=== PATIENT | female | born 1940 | race African-American/Black ===

== ENCOUNTER → 2018-04-24 | Outpatient (CLI) | payer OTHER ==
[~2018-04-24] MED LIST: FUROSEMIDE INJ 10 MG/ML 4 ML VIAL ONE; REGADENOSON 0.4 MG/5 ML SYR IV ONE
--- NOTE | 2018-04-24 20:26 | Diagnostic Imaging Report ---
Renal Scan with Lasix Washout Clinical information: 77 F with ureteral stricture. Technique: Following intravenous administration of 10 mCi of Tc-99m MAG3, dynamic images of the kidneys in the posterior projection were obtained through 40 minutes. Lasix 40 mg was administered intravenously at 10 minutes post injection of the tracer. Report: Left kidney: Perfusion of the left kidney is prompt. The kidney has a normal reniform shape. Extraction of tracer from the blood pool is normal for age. Clearance of tracer from the renal parenchyma is prompt. The pelvicalyceal system is not dilated although a large dilated calyx is present in the upper pole. Physiologic pooling of tracer within the pelvicalyceal system is seen. Drainage of tracer from the pelvicalyceal system is prompt and adequate prior to administration of Lasix. No significant stasis of tracer is seen within the left ureter. Right kidney: Perfusion to the right kidney is prompt. The right kidney has a slightly narrowed reniform shape. The right kidney is smaller than the left kidney. Extraction of tracer by the renal parenchyma is normal for age. Clearance of tracer from the renal parenchyma is prompt. The pelvicalyceal system is not dilated although dilated calyces are present in the upper pole and mid aspect of the kidney. Physiologic pooling of tracer within the pelvicalyceal system is seen. Drainage of tracer from the pelvicalyceal system is prompt and adequate prior to administration of Lasix. No significant stasis of tracer is seen within the right ureter. Differential renal function: The left kidney contributes 54% of total renal function and the right kidney contributes 46%% (normal 43-57%). Impression: 1. The function of the left kidney is generally normal for age. No hydronephrosis is present although a dilated calyx is noted in the upper pole. No physiologically significant obstruction of the renal collecting system is present. 2. The function of the right kidney is generally normal. The differential function of 46% reflects the smaller size of the right kidney compared to the left kidney. No hydronephrosis is present although dilated calyces are noted in the upper pole and mid aspect of the kidney. No physiologically significant obstruction of the renal collecting system is present. 3. The differential renal function is within normal limits. Signed by: Dr. Nyla Oreilly M.D. on 04/24/2018 8:23 PM
== END ==
LOC: NM 14:00
PROVIDERS: ATTEND Urology
DX: N35.9 Urethral stricture, unspecified (principal); N28.1 Cyst of kidney, acquired
CPT/HCPCS: 78708; A9562; J1940

== ENCOUNTER → 2019-04-09 | Outpatient (CLI) | payer MEDICARE ==
--- NOTE | 2019-04-09 13:19 | Diagnostic Imaging Report ---
EXAM: Renal Ultrasound INDICATION: Renal cyst. COMPARISON: None TECHNIQUE: Transverse and longitudinal images of the kidneys and bladder were obtained. FINDINGS: Right Kidney: Length: Measures 12.0 x 4.4 x 3.9 cm Appearance: Normal echogenicity. Collecting system: No hydronephrosis Stones: None Cyst/Mass: No evidence of solid mass. There is an anechoic simple appearing cyst in the right mid pole, measuring up to 2.2 cm. Left Kidney: Length: Measures 11.1 x 4.8 x 3.6 cm Appearance: Normal echogenicity. Collecting system: No hydronephrosis Stones: There is a 4 mm left mid pole renal stone. Cyst/Mass: None Bladder: Unremarkable in appearance. Bilateral ureteral jets are present. The prevoid volume is 64 cc. IMPRESSION: Simple appearing 2.2 cm right mid pole renal cyst. A 4 mm nonobstructive left mid pole renal stone. Signed by: Dr. Gasper Mckeon MD on 04/09/2019 1:15 PM
== END ==
LOC: US 10:59
PROVIDERS: ATTEND Urology
DX: N28.1 Cyst of kidney, acquired (principal); N13.30 Unspecified hydronephrosis
CPT/HCPCS: 76770

== ENCOUNTER → 2019-08-02 | Outpatient (CLI) | payer OTHER, MEDICARE ==
--- NOTE | 2019-08-02 10:47 | Diagnostic Imaging Report ---
CT of the abdomen and pelvis History: Kidney calculus Comparison: No CT comparisons available for review, comparison is made to renal ultrasound dated 04/09/2019. Technique: Multidetector CT scanning of the abdomen and pelvis was performed from the level of the lung bases to the inferior pubic ramus without contrast. DOSE REDUCTION: The examination was performed according to departmental dose-optimization program which includes automated exposure control, adjustment of the mA and/or kV according to patient size and/or use of iterative reconstruction technique. Discussion: The lung bases are clear. Lack of IV contrast evaluation of solid and hollow organs. No focal hepatic lesions are identified. The gallbladder is present nondistended. No radiopaque gallstones are identified. There is no intrahepatic or extrahepatic biliary dilatation. Spleen is within normal limits. The bilateral adrenal glands are normal. The pancreas is within normal limits. Kidneys are normal in size. The right kidney contains a 2.4 cm cyst arising from the midpole. In the left kidney is nonobstructing 3 mm calculus. There is no hydroureteronephrosis bilaterally. The stomach, small, and large bowel are nondistended. There is no evidence of obstruction. The appendix is normal. There is no bowel wall thickening. The uterus is surgically absent. The urinary bladder is within normal limits. The abdominal aorta is of normal course and caliber. No enlarged abdominal or retroperitoneal lymph nodes are identified. There are no acute osseous abnormalities. 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 In the subcutaneous tissues of the left upper quadrant anterior abdominal wall there is a 3.7 x 2.0 cm soft tissue mass which is not completely characterized on this examination. IMPRESSION: 1. 3 mm nonobstructing left renal calculus. 2. Nonspecific 3.7 x 2.0 cm soft tissue mass in the subcutaneous tissues of the left upper quadrant anterior abdominal wall. Further evaluation can be performed with ultrasound. 3. Right renal cyst 4. Status post hysterectomy. Signed by: Bal Drummond MD on 08/02/2019 10:44 AM
== END ==
LOC: CT 09:38
PROVIDERS: ATTEND Urology
DX: N20.0 Calculus of kidney (principal)
CPT/HCPCS: 74176

== ENCOUNTER → 2019-08-26 | Outpatient (CLI) | payer OTHER, MEDICARE ==
--- NOTE | 2019-08-26 17:38 | Diagnostic Imaging Report ---
Parathyroid Scan with SPECT Reason for exam: Primary hyperparathyroidism Radiopharmaceutical: Tc-99m sestamibi 26 mCi After intravenous administration of the radiopharmaceutical, immediate and 2-hour planar images of the neck and upper chest were obtained. Tomographic images of the neck and upper chest were obtained following the initial planar images. On the initial planar and the tomographic images, a focus of increased tracer is seen immediately superior to the upper pole of the left thyroid lobe. On the tomographic images, this focus is localized immediately posterior to the plane of the thyroid. On the delayed planar images, the thyroid washes out adequately and this focus persists. No other focal abnormalities are identified. Impression: Single enlarged hypermetabolic parathyroid gland is identified immediately superior to the upper pole of the left thyroid lobe. Signed by: Dr. Nyla Oreilly M.D. on 08/26/2019 5:35 PM
== END ==
LOC: NM 10:32
PROVIDERS: ATTEND Urology
DX: E21.5 Disorder of parathyroid gland, unspecified (principal)
CPT/HCPCS: 78071; A9500

== ENCOUNTER → 2020-05-08 | Outpatient (CLI) | payer OTHER, MEDICARE ==
[~2020-05-08] MED LIST changes: +DIFLUCAN50 MG PO; +MACRODANTIN100 MG PO; +MULTIVITAMINS1 EAC7 PO; -REGADENOSON 0.4 MG/5 ML SYR IV ONE
--- NOTE | 2020-05-08 15:07 | Diagnostic Imaging Report ---
Exam: KUB - 2 views Indication: Renal calculus Comparison: CT abdomen and pelvis of 08/02/2019 Findings: No radiographically apparent renal calculi. Nonobstructive bowel gas pattern. No evidence of free intraperitoneal air.. No acute bony abnormality. Impression: No radiographically apparent renal calculi. Signed by: Nate Avery MD on 05/08/2020 3:04 PM
--- NOTE | 2020-05-10 16:07 | Diagnostic Imaging Report ---
Renal Scan with Lasix Washout Clinical information: Renal calculi Technique: Following intravenous administration of 10 mCi of Tc-99m MAG3, dynamic images of the kidneys in the posterior projection were obtained through 40 minutes. Lasix 40 mg was administered intravenously at 10 minutes post injection of the tracer. Report: Left kidney: Perfusion of the left kidney is prompt. The kidney has a normal reniform shape. Extraction of tracer from the blood pool is mildly decreased. Clearance of tracer from the renal parenchyma begins promptly but is not complete by the end of the study. The pelvicalyceal system is not dilated although prominent calices are seen in the upper pole. Increased pooling of tracer is seen within the prominent calices. Drainage of tracer from the pelvicalyceal system is adequate prior to administration of Lasix. No significant stasis of tracer is seen within the left ureter. Right kidney: Perfusion of the right kidney is prompt. The kidney has a normal reniform shape. Extraction of tracer from the blood pool is mildly decreased. The right kidney is slightly smaller than the left kidney. Clearance of tracer from the renal parenchyma begins promptly but is not complete by the end of the study. The renal pelvis is not dilated although prominent calices are seen in the upper and lower poles. Increased pooling of tracer is seen within the prominent calices. Drainage of tracer from the pelvicalyceal system is adequate prior to administration of Lasix. No significant stasis of tracer is seen within the right ureter. Differential renal function: The left kidney contributes 54% of total renal function and the right kidney contributes 46% (normal 43-57%). Impression: 1. Mild medical renal disease is suspected in the left kidney. Prominent calices are seen in the upper pole but no hydronephrosis is present. No physiologically significant obstruction of the renal collecting system is present. 2. Mild medical renal disease is suspected in the right kidney. Prominent calices are seen in the upper pole but no hydronephrosis is present. No physiologically significant obstruction of the renal collecting system is present. 3. The differential renal function is preserved although the right kidney is slightly smaller than the left kidney. Signed by: Dr. Nyla Oreilly M.D. on 05/10/2020 4:04 PM
== END ==
LOC: NM 12:21
PROVIDERS: ATTEND Urology
DX: N20.0 Calculus of kidney (principal)
CPT/HCPCS: 74018; 78708; A9562; J1940

== ENCOUNTER → 2021-03-09 | Outpatient (CLI) | payer MEDICARE ==
[~2021-03-09] MED LIST changes: -FUROSEMIDE INJ 10 MG/ML 4 ML VIAL ONE
== END ==
LOC: RAD 12:49
PROVIDERS: ATTEND Urology
DX: N20.0 Calculus of kidney (principal)
CPT/HCPCS: 74018

== ENCOUNTER → 2022-01-04 | Outpatient (CLI) | payer MEDICARE | LOC: RAD 12:14 | PROVIDERS: ATTEND Urology | DX: N20.0 Calculus of kidney (principal) | CPT/HCPCS: 74018 ==